=== PATIENT | male | born 1990 | race Caucasian/White ===

== ENCOUNTER 2018-04-04 03:00 | Emergency (ER) | payer SELFPAY ==
[~2018-04-04] VITALS: Ht 177.8 cm; Wt 78.0 kg
[2018-04-04 03:00] VITALS: BP 145/94
--- NOTE | 2018-04-04 03:00 | NUR ---
BIBA to bed 11 with [employer] officer. Pt is in custody.
--- NOTE | 2018-04-04 03:00 | NUR ---
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
[2018-04-04] MEDS ORDERED: NACL 0.9% 2,000 ML IV ONE (03:15)
[2018-04-04] MEDS ORDERED: LORazepam 1 MG TAB PO ONE (03:15)
[2018-04-04] MEDS ORDERED: LORazepam 2 MG/ML VIAL IVP ONE (03:15)
--- NOTE | 2018-04-04 03:30 | NUR ---
PT PARANOID AND INCOHERENT, UNABLE TO COMPREHEND CRITERIA FOR RESTRAINT RELEASE AT THIS TIME. ALL EXTREMITIES SKIN INTACT, PINK AND WARM, +2 PULSES, <3S CAP REFILL. IVF INFUSING WELL, ALL NEEDS MET. [place] [employer] AT BEDSIDE FOR CLOSE MONITORING.
--- NOTE | 2018-04-04 04:15 | NUR ---
PT RESTING AND SLEEPING IN BED COMFORTABLY, WILL MONITOR PT AT THIS TIME. ALL EXTREMITIES SKIN INTACT, PINK AND WARM, +2 PULSES, <3S CAP REFILL. IVF INFUSING WELL, ALL NEEDS MET. [place] [employer] AT BEDSIDE FOR CLOSE MONITORING.
--- NOTE | 2018-04-04 04:30 | NUR ---
PT AROUSABLE TO TOUCH, PT APPEARS TO BE CAPABLE OF COMPREHENDING RELEASE. RESTAINTS RELEASED AT THIS TIME. ALL EXTREMITIES SKIN INTACT, PINK AND WARM, +2 PULSES, <3S CAP REFILL. IVF INFUSING WELL, ALL NEEDS MET. [place] [employer] AT BEDSIDE FOR CLOSE MONITORING.
[2018-04-04 04:37] VITALS: BP 140/90
--- NOTE | 2018-04-04 04:37 | NUR ---
Patient discharged with v/s stable. Written and verbal after care instructions given and explained. Patient verbalized understanding. Ambulatory with steady gait. All questions addressed prior to discharge. Advised to follow up with PMD. Pt accompanied by FABRI[employer]
[2018-04-04 04:51] LABS: BARBITURATE, URINE NEG. ng/ml (NEG <=200); BENZODIAZEPINE, URINE NEG. ng/mL (NEG <=200); CANNABINOID, URINE NEG. ng/mL (NEG <=50); COCAINE, URINE NEG. ng/mL (NEG <=300); OPIATE, URINE NEG. ng/mL (NEG <=2000); PHENCYCLIDINE SCREEN,URINE NEG. ng/mL (NEG <=25)
== END 2018-04-04 04:37 ==
LOC: MED 03:00
DX: F41.9 Anxiety disorder, unspecified (principal); F15.10 Other stimulant abuse, uncomplicated
CPT/HCPCS: 80305; 96374; 99284; C1758; J2060; J7030